=== PATIENT | male | born 1985 | race Native Hawaiian/Other Pacific Islander ===

== ENCOUNTER 2018-12-06 20:05 | Emergency (ER) | payer OTHER ==
[~2018-12-06] VITALS: Ht 182.9 cm; Wt 90.7 kg
[2018-12-06 21:57] VITALS: BP 130/98; TEMP 98.1
== END 2018-12-06 21:59 | disposition home or self-care (01) ==
LOC: ED 20:05
DX: S53.401A Unspecified sprain of right elbow, initial encounter (principal); M25.521 Pain in right elbow; W01.0XXA Fall on same level from slipping, tripping and stumbling without subsequent striking against object, initial encounter
CPT/HCPCS: 99282

== ENCOUNTER 2019-06-05 05:42 | Emergency (ER) | payer OTHER ==
[~2019-06-05] VITALS: Ht 182.9 cm; Wt 90.7 kg
[2019-06-05 06:26] LABS: PLATELET COUNT 230 K/uL (142-355)
[2019-06-05 07:15] VITALS: BP 143/78; TEMP 98.1
[2019-06-08] MEDS ORDERED: CLIN300C PO (13:21)
== END 2019-06-05 07:21 | disposition home or self-care (01) ==
LOC: ED 05:42
PROVIDERS: Emergency Medicine
DX: S60.362A Insect bite (nonvenomous) of left thumb, initial encounter (principal); L03.012 Cellulitis of left finger; W57.XXXA Bitten or stung by nonvenomous insect and other nonvenomous arthropods, initial encounter
CPT/HCPCS: 80053; 85027; 96372; 99283; J1885

== ENCOUNTER 2022-06-27 17:08 | Emergency (ER) | payer OTHER ==
[~2022-06-27] VITALS: Ht 182.9 cm; Wt 99.8 kg
[~2022-06-27 17:08] MED LIST: CLIN300C PO
[2022-06-27 17:16] VITALS: BP 128/83; TEMP 98.4
== END 2022-06-27 17:58 | disposition home or self-care (01) ==
LOC: ED 17:08
DX: L23.7 Allergic contact dermatitis due to plants, except food (principal)
CPT/HCPCS: 96372; 99282; J1200; J2930

== ENCOUNTER 2023-02-05 12:31 | Emergency (ER) | payer OTHER ==
[~2023-02-05] VITALS: Ht 182.9 cm; Wt 93.0 kg
[2023-02-05 12:35] VITALS: BP 134/74; TEMP 97.8
== END 2023-02-05 14:03 | disposition home or self-care (01) ==
LOC: ED 12:31
DX: S90.31XA Contusion of right foot, initial encounter (principal); S97.81XA Crushing injury of right foot, initial encounter; W17.89XA Other fall from one level to another, initial encounter; F17.210 Nicotine dependence, cigarettes, uncomplicated
CPT/HCPCS: 99282